=== PATIENT | male | born 1970 | race Caucasian/White ===

== ENCOUNTER 2020-09-03 14:23 | Outpatient (CLI) | payer BC, SELFPAY ==
--- NOTE | ~2020-09-03 | MR_ITS ---
EXAMINATION: MR hip LT wo con DATE: 09/03/2020 15:30 INDICATION: Left hip pain TECHNIQUE: Magnetic resonance imaging (MRI) of the left hip was performed without intravenous contra st. Sequences included full-field axial PD-weighted FS FSE and T1-weighted FSE, coronal of the pelvis with PD-weighted FS FSE, small field of view of the left hip with axial PD-weighted FS FSE, sagitta l PD-weighted FS FSE and coronal PD weighted FS FSE. Additional radial T1-weighted FGR oriented ortho gonal to the acetabular rim were obtained for evaluation of the labrum. COMPARISON: None FINDINGS: Bones/labrum/cartilage: Alignment is normal. No fracture, avascular necrosis or pathologic marrow replacing process. There i s a tear of the anterosuperior to posterior superior left acetabular labrum. Mild left hip osteoarthr itis with mild nonuniform partial thickness cartilage loss without degenerative subchondral changes. Metallic magnetic field field artifact at the lower lumbar spine from L4 through S1 suggesting prior instrumented combined anterior and posterior spinal fusion. Fluid: Symmetric physiologic amount of fluid within both hip joints. Soft tissues: No asymmetric muscular atrophy. Prominent increased fluid signal interspersed among the muscle fibers in the thickened caudal aspect of the left rectus abdominis muscle consistent with muscle strain. A small region of the distal muscle demonstrates some architectural distortion of the muscle fibers sug gesting a partial tear. Additional increased fluid signal in the distal right rectus abdominous muscl e which is not thickened and without the architectural distortion is seen on the left consistent with low-grade strain. There is mild left ischial bursitis with partial avulsion of the ischial tuberosit y origin of the abductor luis tendon. Mild tendinopathy without discrete tear at the proximal left hamstring tendons. The iliopsoas, gluteal and proximal right hamstring tendons are normal. Partially visualized penile implant. Limited evaluation of visceral organs of the pelvis is unremarkable. No p athologically enlarged pelvic/inguinal lymphadenopathy. IMPRESSION: 1. Inferior rectus abdominis muscle strains, moderate severity on the left and mild on the right. 2. Mild left ischial bursitis with mild tendinopathy without discrete tear of the proximal left hamst ring tendons and with mild tendinopathy and partial tear at the origin of the left abductor luis te ndon. 3. Mild left hip osteoarthritis with anterosuperior to posterior superior labral tear. Reviewed, dictated and finalized at location A. IMPRESSION: 1. Inferior rectus abdominis muscle strains, moderate severity on the left and mild on the right. 2. Mild left ischial bursitis with mild tendinopathy without discrete tear of t he proximal left hamstring tendons and with mild tendinopathy and partial tear at the origin of the left abductor luis tendon. 3. Mild left hip osteoarthritis with anterosuperior to posterior superior vinay l tear.
== END 2020-09-03 14:24 | disposition home or self-care (01) ==
DX: M70.72 Other bursitis of hip, left hip (principal); M16.12 Unilateral primary osteoarthritis, left hip
CPT/HCPCS: 73721

== ENCOUNTER 2020-11-26 07:09 | Emergency (ER) | payer BC, SELFPAY ==
--- NOTE | ~2020-11-26 | CT_ITS ---
EXAMINATION: CTA chest PE protocol DATE: 11/26/2020 09:11 INDICATION: Shortness of breath, cough and chest tightness. TECHNIQUE: Computed tomography (CT) pulmonary angiogram of the chest was performed with 100 mL Omnipa que-350 intravenous contrast. Additional 3D reconstructions utilizing coronal maximum intensity proje ction (MIP) were performed. Automated exposure control and iterative reconstruction technique were em ployed. The dose-length product was 857.82 mGy-cm. COMPARISON: None FINDINGS: Good but suboptimal contrast opacification of the pulmonary arteries. There is mild streak artifact f rom dense contrast in the superior vena cava and right atrium. Mild scattered respiratory motion rand fact. Overall this mildly decreases sensitivity in the smaller subsegmental pulmonary arteries. No pu lmonary embolism. Geographic regions of patchy centrilobular groundglass opacities throughout the rig ht lung and in a portion of the left lower lobe consistent with pneumonia. No pleural effusion or pne umothorax. Heart size is normal. No pericardial effusion. No pathologically enlarged thoracic lymphad enopathy. Moderate bilateral gynecomastia. Postoperative change of prior gastric bypass procedure and cholecystectomy. 2.6 cm right adrenal adenoma demonstrating intracellular lipid with signal dropout on opposed phase images of MRI dated 11/05/2013. A few old healed left-sided rib fractures. IMPRESSION: 1. No pulmonary embolism. 2. Multifocal pneumonia throughout the right lung and in a portion of the left lower lobe. Reviewed, dictated and finalized at location A.
[2020-11-26 07:18] VITALS: BP 155/83; PULSE 99; RESP 23; TEMP 37.2; O2SAT 96
--- NOTE | 2020-11-26 07:21 | ECG_ITS ---
Measurements Intervals [place] Rate: 99 P: 70 HI: 172 QRS: 17 QRSD: 96 T: 57 QT: 325 QTc: 417 Interpretive Statements SINUS RHYTHM POSSIBLE LEFT ATRIAL ENLARGEMENT DELAYED PRECORDIAL R/S TRANSITION BASELINE ARTIFACT- V1-V2 BORDERLINE ECG Electronically Signed On 11-26-2020 8:34:58 CDT by Chucho Ospina D.O.
[2020-11-26 08:30] VITALS: BP 154/87; PULSE 97; RESP 14; O2SAT 98
[2020-11-26] MEDS: SODIUM CHLORIDE 0.9% IV 1,000 ML 999 ML IV CONT ×2 (08:34)
--- NOTE | 2020-11-26 08:43 | ED.URI ---
HPI - URI/Sore Throat General Chief Complaint: Upper Respiratory Infection Stated Complaint: shortness of breath Time Seen by Provider: 11/26/20 07:42 Source: patient History of Present Illness HPI Narrative: Patient reports shortness of breath and chest tightness. Patient reports symptoms present for the past couple days and getting worse. Reports symptoms started with sinus congestion and thought maybe he was just having allergies but they were getting worse breathing so he came to the ER for evaluation. Patient denies any known sick contacts does not believe he has had a fever and reports he is not vaccinated against Covid. Reports he has diffuse chest tightness worse with taking a deep breath also reports nonproductive cough. Chest tightness is constant, worse with deep inspiration, no radiation worse with attempting to take big deep breaths Related Data Home Medications Medication Instructions Recorded Confirmed amitriptyline 02/06/19 amlodipine-atorvastatin tablet 02/06/19 bupropion HCl PO 02/06/19 cyanocobalamin (vitamin B-12) 02/06/19 duloxetine mg PO 02/06/19 duloxetine mg PO 02/06/19 ergocalciferol (vitamin D2) 02/06/19 [Vitamin D2] gabapentin 02/06/19 ibuprofen 02/06/19 meloxicam 02/06/19 pantoprazole PO 02/06/19 saxagliptin [Onglyza] mg 02/06/19 testosterone cypionate mg 02/06/19 Allergies Allergy/AdvReac Type Severity Reaction Status Date / Time tramadol Allergy Mild itching Verified 11/26/20 07:21 trazodone Allergy Other Verified 11/26/20 07:21 Review of Systems Review of Systems: CONSTITUTIONAL: Denies fever, chills, or sweats. EYES: Denies visual changes, redness, or discharge. ENT: Denies rhinorrhea, congestion, sore throat, or otalgia. CARDIOVASCULAR: Denies palpitations, or edema. RESPIRATORY: Reports cough and shortness of breath GASTROINTESTINAL: Denies abdominal pain, nausea, vomiting, or diarrhea. GENITOURINARY: Denies dysuria or hematuria. SKIN: Denies rash or itching. MUSCULOSKELETAL: Denies back pain, joint pain, or myalgia. NEUROLOGIC: Denies headache, numbness, dizziness, or weakness. PSYCHIATRIC: Denies anxiety or depression. All systems reviewed & are unremarkable except as noted in HPI and below PMFSH Past Medical History Medical History Anxiety Bulging discs Depression Diabetes mellitus HLD (hyperlipidemia) HTN (hypertension) Peripheral neuropathy Priapism Surgical History Surgical History H/O gastric bypass History of back surgery History of penile implant Hx of cholecystectomy Family History Family History Father Diabetes mellitus Family history of cardiovascular disease Family history of kidney disease Other Cerebrovascular accident Family history of blood dyscrasia Family history of malignant neoplasm Hypertension Social History Social History Smoking status: Former smoker Smoking end date: 02/14/12 Alcohol intake: current Gender identity (if verbalized by the patient): Male Exam Narrative: GENERAL: Well-appearing, well-nourished, and in no acute distress. HEAD: Normocephalic, atraumatic. EYES: PERRLA and EOMI. ENT: Nares clear, no rhinorrhea or epistaxis. Mucous membranes moist. NECK: Supple. No masses. No JVD CHEST: Clear to auscultation. No respiratory distress. No wheezes rales or rhonchi HEART: Regular rate and rhythm. No murmur heard. Normal peripheral pulses. ABDOMEN: Soft, nontender, nondistended, normal active bowel sounds. EXTREMITIES: Normal range of motion. No edema. SKIN: Warm, dry, no rash. NEURO: No focal deficits. Alert and oriented x3. PSYCH: Normal mood and affect. Course Reevaluation(s) Reevaluation #1: Patient reports feeling somewhat improved after supportive therapies.
[2020-11-26 08:50] LABS: Basophils Percent Auto 0.4 % (0.2-1.2); Eosinophils Absolute Auto 0.2 K/mm3 (0-0.3); Eosinophils Percent Auto 2.2 % (0-4.4); Hematocrit 39.1 % (42.0-52.0); Hemoglobin 12.7 g/dL (14.0-18.0); Immature Granulocyte Percent A 0.9 % (0-0.5); Lymphocytes Absolute Auto 0.85 K/mm3 (0.9-3.2); Lymphocytes Percent Auto 7.9 % (18.3-44.2); Mean Corpuscular HGB Conc 32.5 g/dl (32-36); Mean Corpuscular Hemoglobin 30.7 pg (26-34); Mean Corpuscular Volume 94.4 fl (80-100); Mean Platelet Volume 10.8 fl (7.4-10.4); Monocytes Absolute Auto 0.6 K/mm3 (0.1-0.6); Monocytes Percent Auto 5.5 % (2.6-8.5); Neutrophils Absolute Auto 8.9 K/mm3 (1.3-6.7); Neutrophils Percent Auto 83.1 % (45.5-73.1); Platelet Count Result 211 k/mm3 (150-375); Red Blood Count 4.14 M/mm3 (4.6-6.20); Red Cell Distribution Width 13.2 % (11.5-14.5); White Blood Count 10.7 K/mm3 (4.5-10.0)
[2020-11-26 09:01] LABS: Anion Gap 10 mmol/L (8-16); Blood Urea Nitrogen 10 mg/dL (9-20); Calcium 9.4 mg/dL (8.4-10.2); Carbon Dioxide 28 mmol/L (22-30); Chloride 100 mmol/L (98-107); Estimated Glomerular Filt Rate > 60; Glucose 156 mg/dL (65-110); Potassium 4.2 mmol/L (3.4-5.0); Sodium 138 mmol/L (137-145)
[2020-11-26 09:30] VITALS: BP 139/81; PULSE 102; RESP 19; O2SAT 99
[2020-11-26 10:30] VITALS: BP 134/87; PULSE 100; RESP 14; O2SAT 100
[2020-11-26] MEDS: KETOROLAC 15 MG/ML VIAL (*BKC) IV PUSH (10:45)
[2020-11-26 18:09] LABS: SARS-CoV-2 RNA PCR Negative
== END 2020-11-26 10:50 | disposition home or self-care (01) ==
PROVIDERS: Emergency Provider Emergency Medicine
DX: J18.9 Pneumonia, unspecified organism (principal); Z20.822 Contact with and (suspected) exposure to COVID-19; E11.42 Type 2 diabetes mellitus with diabetic polyneuropathy; E78.5 Hyperlipidemia, unspecified; I10 Essential (primary) hypertension; F41.9 Anxiety disorder, unspecified; F32.A Depression, unspecified; Z98.84 Bariatric surgery status; Z87.891 Personal history of nicotine dependence; R94.31 Abnormal electrocardiogram [ECG] [EKG]
CPT/HCPCS: 36415; 71275; 80048; 85025; 93005; 96361; 96374; 96375; 99284; C9803; J0131; J1885; J7030; Q9967; U0003; U0005

== ENCOUNTER 2021-01-24 15:21 | Emergency (ER) | payer BC, SELFPAY ==
--- NOTE | ~2021-01-24 | XR_ITS ---
EXAMINATION: XR hand RT min 3V EXAM DATE: 01/24/2021 17:18 INDICATION: Dog bite . TECHNIQUE: Right hand frontal, lateral and oblique projections obtained and reviewed. There is no pr ior study for comparison. FINDINGS: Right metacarpal bones are unremarkable. Hand swelling, small amount of subcutaneous gas id entified over the hand indicating puncture/laceration. There is an old 5th metacarpal fracture. There are no acute fractures or dislocations identified. There is no subcutaneous gas. The soft tissue i s unremarkable. There are no radiopaque foreign bodies. IMPRESSION: Soft tissue swelling, laceration. Reviewed, dictated and finalized at location A. [employer]CTION INTERN
[2021-01-24 15:29] VITALS: BP 123/81; PULSE 85; RESP 16; TEMP 36.4; O2SAT 99
--- NOTE | 2021-01-24 16:53 | ED.ANIMALBIT ---
HPI - Animal Bite General Chief Complaint: Animal Bite Stated Complaint: DOG BITE Time Seen by Provider: 01/24/21 16:37 Source: patient Mode of arrival: ambulatory Limitations: no limitations History of Present Illness HPI narrative: Patient presents with multiple dog bites to right hand prior to arrival to the emergency room. Patient was trying to separate between 2 of his dogs who were having sex at that time. Patient denies other injuries. Related Data Home Medications Medication Instructions Recorded Confirmed amitriptyline 02/06/19 amlodipine-atorvastatin tablet 02/06/19 bupropion HCl PO 02/06/19 cyanocobalamin (vitamin B-12) 02/06/19 duloxetine mg PO 02/06/19 duloxetine mg PO 02/06/19 ergocalciferol (vitamin D2) 02/06/19 [Vitamin D2] gabapentin 02/06/19 ibuprofen 02/06/19 meloxicam 02/06/19 pantoprazole PO 02/06/19 saxagliptin [Onglyza] mg 02/06/19 testosterone cypionate mg 02/06/19 Allergies Allergy/AdvReac Type Severity Reaction Status Date / Time tramadol Allergy Mild itching Verified 11/26/20 07:21 trazodone Allergy Other Verified 11/26/20 07:21 Review of Systems Review of Systems: CONSTITUTIONAL: Denies fever, chills, or sweats. EYES: Denies visual changes, redness, or discharge. ENT: Denies rhinorrhea, congestion, sore throat, or otalgia. CARDIOVASCULAR: Denies chest pain, palpitations, or edema. RESPIRATORY: Denies cough or dyspnea. GASTROINTESTINAL: Denies abdominal pain, nausea, vomiting, or diarrhea. GENITOURINARY: Denies dysuria or hematuria. SKIN: Denies rash or itching. MUSCULOSKELETAL: Denies back pain, joint pain, or myalgia. NEUROLOGIC: Denies headache, numbness, or weakness. PSYCHIATRIC: Denies anxiety or depression. [facility] Past Medical History Medical History Anxiety Bulging discs Depression Diabetes mellitus HLD (hyperlipidemia) HTN (hypertension) Peripheral neuropathy Priapism Surgical History Surgical History H/O gastric bypass History of back surgery History of penile implant Hx of cholecystectomy Family History Family History Father Diabetes mellitus Family history of cardiovascular disease Family history of kidney disease Other Cerebrovascular accident Family history of blood dyscrasia Family history of malignant neoplasm Hypertension Social History Social History Smoking status: Former smoker Smoking end date: 02/14/12 Alcohol intake: current Gender identity (if verbalized by the patient): Male Exam Narrative: General appearance: Well-developed, well-nourished Skin: Normal color. Multiple bites, puncture wounds at the right hand dorsally Chest and respiratory: Airway patent, no respiratory distress, no accessory muscle use Heart: Regular rate/rhythm Vascular: Normal peripheral pulses, normal capillary refill. Musculoskeletal: Limited range of motion of the right fingers Neurologic: Alert and oriented ?3, Course Course Emergency Course: Stable Vital Signs Vital signs: Vital Signs Temperature 36.4 C L 01/24/21 15:29 Pulse Rate 85 01/24/21 15:29 Respiratory Rate 16 01/24/21 15:29 Blood Pressure 123/81 01/24/21 15:29 Pulse Oximetry 99 01/24/21 15:29 Temperature 36.4 C L 01/24/21 15:29 Pulse Rate 85 01/24/21 15:29 Respiratory Rate 16 01/24/21 15:29 Blood Pressure 123/81 01/24/21 15:29 Pulse Oximetry 99 01/24/21 15:29 MDM - Animal Bite MDM Narrative Medical decision making narrative: X-ra
[2021-01-24] MEDS: TETANUS,DIPHTHERIA,AC PERTUSSIS ADULT (0.5 ML) BOOSTRIX IM (17:04)
== END 2021-01-24 19:00 | disposition home or self-care (01) ==
PROVIDERS: Emergency Provider Emergency Medicine; PCP Internal Medicine Endocrinology, Diabetes & Metabolism
DX: S61.451A Open bite of right hand, initial encounter (principal); E78.5 Hyperlipidemia, unspecified; I10 Essential (primary) hypertension; E11.42 Type 2 diabetes mellitus with diabetic polyneuropathy; F41.9 Anxiety disorder, unspecified; F32.A Depression, unspecified; Z98.84 Bariatric surgery status; Z23 Encounter for immunization; Z87.891 Personal history of nicotine dependence; W54.0XXA Bitten by dog, initial encounter
CPT/HCPCS: 73130; 90471; 90715; 99283

== ENCOUNTER → 2021-02-22 03:42 | Outpatient (CLI) | payer BC, SELFPAY ==
[2021-02-22 20:22] LABS: SARS-CoV-2 RNA PCR Negative
== END ==
PROVIDERS: PCP Internal Medicine Endocrinology, Diabetes & Metabolism; Visit Provider Plastic Surgery
DX: Z01.812 Encounter for preprocedural laboratory examination (principal); Z20.822 Contact with and (suspected) exposure to COVID-19
CPT/HCPCS: C9803; U0003; U0005

== ENCOUNTER 2021-02-23 09:24 | Outpatient (CLI) | payer BC, SELFPAY ==
[2021-02-23 10:02] LABS: Anion Gap 12 mmol/L (8-16); Blood Urea Nitrogen 16 mg/dL (9-20); Calcium 9.7 mg/dL (8.4-10.2); Carbon Dioxide 28 mmol/L (22-30); Chloride 99 mmol/L (98-107); Estimated Glomerular Filt Rate > 60; Glucose 204 mg/dL (65-110); Potassium 4.6 mmol/L (3.4-5.0); Sodium 139 mmol/L (137-145)
== END 2021-02-23 09:25 | disposition home or self-care (01) ==
LOC: ANHSURGERY 09:29
PROVIDERS: Anesthesiology; PCP Internal Medicine Endocrinology, Diabetes & Metabolism; Visit Provider Plastic Surgery
DX: Z01.812 Encounter for preprocedural laboratory examination (principal); E11.9 Type 2 diabetes mellitus without complications
CPT/HCPCS: 36415; 80048

== ENCOUNTER 2021-02-25 00:49 | Day surgery (SDC) | payer BC, SELFPAY ==
[2021-02-22 10:02] VITALS: BMI 36.6
--- NOTE | 2021-02-22 10:15 | PC.NURSE ---
Report to the Outpatient Waiting Room, entrance under the green pavilion located off [facility], at time 8:30 on date 02/25/21. OR Time: 10:30. - You will be asked a series of questions to screen for COVID 19 for your protection. - A mask is required within the hospital. - No visitors are allowed at this time. Preoperative COVID Testing Requirements: COVID TEST 02/22 AT 9:35 No COVID Test needed if: (proof is required; if not received patient will have Rapid Test prior to entry) - Patient has received COVID Vaccine at least 14 days prior to procedure date or - Patient has positive COVID test result within last 90 days of surgery date. COVID Test needed if above criteria is not met If not COVID vaccinated a COVID test must be conducted within 72 hours of surgery and patient is asked to isolate self from time of testing until procedure. You will go to the [facility] for your COVID testing. The [facility] site is located at the corner of [address] [facility]. You will only be called if COVID results are positive and your surgeon may reschedule your elective surgery date. Patients may have clear liquids (water, carbonated beverages, clear teas, apple juice) until 3 hours prior to surgery (7:30) with a maximum of 20 ounces. - No food from midnight until time of surgery Take the following medications with a SIP of water the morning of surgery: BUPROPION, CARVEDILOL, DULOXETINE, GABAPENTIN Medications to discontinue per physician: VITAMINS/SUPPLEMENTS Date to take last dose: 02/21/21 Please no make-up, nail azeri, hairspray, perfume, deodorant, or body powder the day of surgery. No jewelry (including any body piercings) or valuables the day of surgery, leave them at home. Please take a shower or bath the night before, or the morning of, surgery with an antibacterial soap. Wear comfortable, loose fitting clothing. - Jewelry must be removed prior to entering the operating room. Rings and piercings that are not removed may be cut off. - The hospital will not accept responsibility for valuables. - Please leave all valuables, including medications, at home the day of surgery. If you are going home after surgery, a licensed race car driver must drive you home. - NO public transportation without another adult. - We recommend that an adult stay with you for 24 hours following discharge. - We also recommend that you do not drive, make important decision, drink alcoholic beverages, or take any drugs that were not prescribed by your health care provider for at least 24 hours after your discharge time. Follow any additional instructions given to you from your surgeon. Telephone instructions given to VERITO FLORES and asked if any additional questions and then verbalized understanding. Patient advised to call surgeon office or pre surgery nurse liaison [phone] if any additional questions.
--- NOTE | 2021-02-24 09:28 | WPDANESEPPF ---
Anes - Initial Pre Proc Eval Procedure: Operation Date: 02/25/21 10:30 Proposed Procedures p Repair Radial Digital Nerve Right Thumb with Vein Conduit - Harris Mosquera MD Date/Time: 02/24/21 09:28 Surgeon: Harris Mosquera MD Pre Op Diagnosis: Laceration of Radial digital nerve Rt Thumb Patient Data Age: 50 Gender: M Height: 1.78 m Weight: 115.67 kg Allergies Allergy/AdvReac Type Severity Reaction Status Date / Time tramadol Allergy Mild itching Verified 02/25/21 09:32 trazodone Allergy Other Verified 02/25/21 09:32 Home Medications Medication Instructions Recorded Confirmed Type amitriptyline 100 mg PO HS 02/06/19 02/22/21 History bupropion HCl 150 mg PO BID 02/06/19 02/22/21 History cyanocobalamin (vitamin B-12) 1,000 mcg IM MONTHLY 02/06/19 02/22/21 History duloxetine 90 mg PO DAILY 02/06/19 02/22/21 History ergocalciferol (vitamin D2) 1,250 mcg PO 2XW 02/06/19 02/22/21 History [Vitamin D2] gabapentin 300 mg PO TID 02/06/19 02/22/21 History meloxicam 15 mg PO DAILY 02/06/19 02/22/21 History saxagliptin [Onglyza] 5 mg PO DAILY 02/06/19 02/22/21 History atorvastatin 10 mg PO DAILY 02/22/21 02/22/21 History calcium 500 mg PO DAILY 02/22/21 02/22/21 History carvedilol 25 mg PO BID 02/22/21 02/22/21 History diltiazem HCl 240 mg PO DAILY 02/22/21 02/22/21 History multivitamin 1 tablet PO DAILY 02/22/21 02/22/21 History testosterone cypionate 300 mg IM MONTHLY 02/22/21 02/22/21 History tizanidine 4 mg PO HS 02/22/21 02/22/21 History zolpidem 5 mg PO HS 02/22/21 02/22/21 History Patient hx anesthesia problems: none Family hx anesthesia problems: none Results Review: All pre-operative results and documents have been reviewed as part of the pre-operative evaluation. [facility] Past Medical History Medical History (Updated 02/24/21 @ 13:23 by Harris Mosquera MD) Anxiety Bulging discs Depression Diabetes mellitus HLD (hyperlipidemia) HTN (hypertension) Palpitations Peripheral neuropathy Priapism Surgical History Surgical History H/O gastric bypass History of back surgery History of penile implant Hx of cholecystectomy Family History Family History Father Diabetes mellitus Family history of cardiovascular disease Family history of kidney disease Other Cerebrovascular accident Family history of blood dyscrasia Family history of malignant neoplasm Hypertension Social History Social History Smoking packs per day: 1 Smoking cigarettes per day: 20.0 Years smoked: 30 Smoking pack-years: 30.00 Smoking status: Former smoker Tobacco type: cigarettes Smoking end date: 02/13/18 Alcohol intake: current Drinks per week: 24 Alcohol use details: ON WEEKENDS Substance use: never Substance use type: does not use Living arrangements: with family Gender identity (if verbalized by the patient): Male Spiritual care concerns: No Anes - Eval Final PreProcedure Day of Procedure 02/24/21 09:28 Patient weight: obese Heart: regular rate and rhythm Lungs: clear to auscultation and normal air movement Airway: Mallampati scale class II Neurological: alert and oriented Last oral intake: >/= 8 hours ASA classification: III Emergent: no Anesthetic plan: proceed Anesthesia type and monitoring: general GIVS and standard monitoring Results Review: All pre-operative results and documents have been reviewed as part of the pre-operative evaluation. Informed Consent: The patient's anesthetic plan and its attendant risks and benefits were discussed with the patient/family/POA. Questions were solicited and answers provided to the satisfaction of the patient/family/POA.
--- NOTE | 2021-02-24 12:52 | PM.HPGS ---
History of Present Illness History of Present Illness Consent: Risks, benefits, and alternatives have been discussed and questions answered. Patient agrees to proceed with procedure. Chief complaint: Laceration of Radial digital nerve Rt Thumb Narrative: Renan Sandoval is a 50 year old male who sustained a laceration to his right radial thumb 01/24/2021. The laceration was 1 of several sustained when his dog bit him on both hands. He has gone on to heal the wounds but the worst of these included injury to the radial digital nerve of the right thumb. We have monitored him for several weeks and there has been no return of sensation. He has consented to repair of this realizing that we may need a vein conduit to complete the task. He understands that our goal is to recover sensation to the numb part of the thumb. He is also aware that full sensory recovery may not happen. This could be due to his age or the difficulty or disruption of our repair. There may also be infection There may also be some stiffening of the joint because of the additional surgery and scarring. He would like to proceed. Review of Systems ENT: Comments: hearing loss Cardiovascular: Cardiovascular: Reports irregular heart rhythm Gastrointestinal: Comments: gastric bypass Musculoskeletal: Comments: arthritis and history of spinal fusion Psychiatric: Comments: depression and anxiety PMFSH Past Medical History Medical History (Updated 02/24/21 @ 13:23 by Harris Mosquera MD) Anxiety Bulging discs Depression Diabetes mellitus HLD (hyperlipidemia) HTN (hypertension) Palpitations Peripheral neuropathy Priapism Surgical History Surgical History H/O gastric bypass History of back surgery History of penile implant Hx of cholecystectomy Family History Family History Father Diabetes mellitus Family history of cardiovascular disease Family history of kidney disease Other Cerebrovascular accident Family history of blood dyscrasia Family history of malignant neoplasm Hypertension Social History Social History Smoking packs per day: 1 Smoking cigarettes per day: 20.0 Years smoked: 30 Smoking pack-years: 30.00 Smoking status: Former smoker Tobacco type: cigarettes Smoking end date: 02/13/18 Alcohol intake: current Drinks per week: 24 Alcohol use details: ON WEEKENDS Substance use: never Substance use type: does not use Gender identity (if verbalized by the patient): Male Spiritual care concerns: No Meds Home Medications and Allergies Home Medications Medication Instructions Recorded Confirmed Type amitriptyline 100 mg PO HS 02/06/19 02/22/21 History bupropion HCl 150 mg PO BID 02/06/19 02/22/21 History cyanocobalamin (vitamin B-12) 1,000 mcg IM MONTHLY 02/06/19 02/22/21 History duloxetine 90 mg PO DAILY 02/06/19 02/22/21 History ergocalciferol (vitamin D2) 1,250 mcg PO 2XW 02/06/19 02/22/21 History [Vitamin D2] gabapentin 300 mg PO TID 02/06/19 02/22/21 History meloxicam 15 mg PO DAILY 02/06/19 02/22/21 History saxagliptin [Onglyza] 5 mg PO DAILY 02/06/19 02/22/21 History atorvastatin 10 mg PO DAILY 02/22/21 02/22/21 History calcium 500 mg PO DAILY 02/22/21 02/22/21 History carvedilol 25 mg PO BID 02/22/21 02/22/21 History diltiazem HCl 240 mg PO DAILY 02/22/21 02/22/21 History multivitamin 1 tablet PO DAILY 02/22/21 02/22/21 History testosterone cypionate 300 mg IM MONTHLY 02/22/21 02/22/21 History tizanidine 4 mg PO HS 02/22/21 02/22/21 History zolpidem 5 mg PO HS 02/22/21 02/22/21 History Allergies Allergy/AdvReac Type Severity Reaction Status Date / Time tramadol Allergy Mild itching Verified 02/22/21 09:59 trazodone Allergy Other Verified 02/22/21 09:59 Exam Neuro: Cranial nerves: Yes CN's II-XII intact bilaterall
--- NOTE | 2021-02-25 08:19 | WPDHPUPDATE1 ---
History and Physical Update Update Date/Time: 02/25/21 08:19 History and Physical has been reviewed, including an updated exam of the patient. There are NO changes in the patient's condition. Risks, benefits, and alternatives have been discussed and questions answered. Patient agrees to proceed with procedure.
[2021-02-25] MEDS: LACTATED RINGERS 1,000 ML 30 ML IV CONT (09:10)
[2021-02-25 09:21] LABS: Glucose Point of Care 158 mg/dl (65-105)
[2021-02-25 09:23] VITALS: BP 163/97; PULSE 95; RESP 16; TEMP 35.8; O2SAT 99
[2021-02-25] MEDS: ceFAZolin 2 GM/D5W 50 ML 2 GM/50 ML BAG IVPB (11:37)
[2021-02-25] MEDS: LIDO 1%/EPINEPHRINE/PF 1:200,000 30 ML VIAL XX (13:47)
[2021-02-25 14:05] VITALS: BP 178/82; PULSE 90; RESP 16; O2SAT 94
[2021-02-25 14:20] VITALS: BP 168/91; PULSE 87; RESP 16; O2SAT 96
[2021-02-25 14:35] VITALS: BP 147/91; PULSE 90; RESP 16; O2SAT 96
[2021-02-25 14:50] VITALS: BP 158/73; PULSE 85; RESP 14; O2SAT 96
--- NOTE | 2021-02-25 15:08 | W.PM.PROC2 ---
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 Patient was taken to the operating room where he was placed supine on the operating table. Sedation anesthetic was administered with an LMA. The right upper extremity was prepped and draped in usual fashion. The site was carefully examined for placement access incisions these were marked on the patient. The area was locally infiltrated with 1% lidocaine with epinephrine. The skin flaps were incised and the dissection was carried from both ends toward the laceration site. The digital nerve trunk was identified proximally and distally. A dorsal branch from just proximal to the IP joint was noted to be intact. A large bifurcating branch leading into the pad which divided just distal to the laceration was found. the 2 ends of that were trimmed back to reveal fascicles. With the thumb in 0? we were able to easily coapt the 2 trunks with a couple 9 0 nylon epi neural sutures. There did not appear to be any unnecessary traction on the repair site. The tourniquet was released and the skin was closed with a running 5 0 nylon. A dorsal aluminum splint was applied with the IP and and metacarpophalangeal joints flexed at about 25? each. This was a hand based splint. 0.5% Marcaine was infiltrated just prior to the application of that. The patient is discharged with instructions in wound care and follow-up for Estimated Blood Loss -5.0 Tourniquet Time 90 Drains No Packing No Pathology none sent Condition stable Disposition PACU
== END 2021-02-25 15:47 | disposition home or self-care (01) ==
PROVIDERS: PCP Internal Medicine Endocrinology, Diabetes & Metabolism; Visit Provider Plastic Surgery
PROC: (CPT 64831; principal; 2021-02-25 10:30)
DX: S64.31XA Injury of digital nerve of right thumb, initial encounter (principal); W54.0XXA Bitten by dog, initial encounter; I10 Essential (primary) hypertension; E78.5 Hyperlipidemia, unspecified; E11.40 Type 2 diabetes mellitus with diabetic neuropathy, unspecified; F41.9 Anxiety disorder, unspecified; F41.8 Other specified anxiety disorders; Z98.84 Bariatric surgery status; Z87.891 Personal history of nicotine dependence; Z79.84 Long term (current) use of oral hypoglycemic drugs
CPT/HCPCS: 64831; 82948; A9270; J0690; J1100; J1644; J2250; J2405; J2704; J3010; J7030; J7120